=== PATIENT | female | born 1950 | race Caucasian/White ===

== ENCOUNTER 2016-07-28 07:45 | Emergency (ER) | payer OTHER ==
[~2016-07-28] VITALS: Ht 160 cm; Wt 85.0 kg
[~2016-07-28 07:45] MED LIST: CIPR500T4 PO; EFFE150C PO; LORA0.5T PO; LORTA5 PO; ZOCO40TA PO
[2016-07-28 07:48] VITALS: BP 149/82; PULSE 77; RESP 15; TEMP 98.2; O2SAT 100
[2016-07-28] MEDS ORDERED: TETANUS/DIPHTHERIA TOXOID ADULT 0.5 ML VIAL IM ONE (08:00)
--- NOTE | 2016-07-28 08:03 | PD ---
HPI Chief Complaint: Injury Time Seen by Provider: 07:54 Travel History International Travel<30 days: No Contact w/Intl Traveler<30days: No Traveled to known affect area: No History of Present Illness HPI The patient is a 66-year-old female who presents emergency department for left forearm pain. The patient states she tripped and fell at [facility] yesterday. The patient states she was shocked when she fell, but was able to stand up and ambulate. The patient then developed left forearm pain starts at the left wrist and radiates to the elbow. The patient did apply ice and took Aleve last night which did help the pain. However, she does note continuing pain of the left forearm that is worse with palpation, flexion, extension, supination, and pronation. She also notes a superficial abrasion to the left lower lip and extensor surface of the left hand. The patient is right-hand dominant. The patient denied any syncopal symptoms and denies any current headache, neck pain , dizziness, nausea, or vomiting. The patient denies taking any anticoagulants. PFSH Past Medical History Anxiety: Yes Depression: Yes High Cholesterol: Yes Diminished Hearing: No GERD: Yes ?: Not Menopausal: Yes Past Surgical History Section: Yes Cholecystectomy: Yes Social History Alcohol Use: No Tobacco Use: Yes (5 CIGS A DAY) Substance Use: No Allergies-Medications (Allergen,Severity, Reaction): Coded Allergies: No Known Allergies (Verified , 07/28/16) Reported Meds & Prescriptions Reported Meds & Active Scripts Active Reported Effexor (Venlafaxine HCl) 75 Mg Tab 75 Mg PO DAILY Zocor (Simvastatin) 40 Mg Tab 40 Mg PO DAILY Review of Systems Except as stated in HPI: all other systems reviewed are Neg Eyes: No: Blurred Vision HENT: No: Headaches, Neck Pain Cardiovascular: No: Chest Pain or Discomfort, Syncope Gastrointestinal: No: Nausea, Vomiting Musculoskeletal: Positive: Limited ROM, Pain Skin: Positive Other (abrasions) Neurologic: No: Focal Abnormalities, Change in Mentation, Paresthesia, Sensory Disturbance Physical Exam Narrative GENERAL: Awake, alert, very pleasant 66-year-old female who appears her stated age and is in no acute respiratory distress. SKIN: Focused skin assessment warm/dry. Patient has a superficial abrasion to left lower lip and extensor surface of the left hand. HEAD: Atraumatic. Normocephalic. EYES: Pupils equal and round. No scleral icterus. No injection or drainage. ENT: No nasal bleeding or discharge. Mucous membranes pink and moist. Ecchymosis noted on the mucosal surface of the left lower lip, no laceration noted. NECK: Trachea midline. No JVD. No tenderness of the cervical vertebrae. MUSCULOSKELETAL: Patient has edema and swelling located over the left wrist. Limited range of motion with flexion and extension her left wrist as well as supination and pronation. Mild tenderness over the proximal aspect the left forearm. No tenderness of the left clavicle or left humerus. Intrinsic left hand muscles are intact. Positive left radial pulse. NEUROLOGICAL: Awake and alert. No obvious cranial nerve deficits. Motor grossly within normal limits. Normal speech. Sensation is intact to the radial , median, and ulnar distribution of the left hand. PSYCHIATRIC: Appropriate mood and affect; insight and judgment normal. Data Data Last Documented VS Vital Signs Date Time Temp Pulse Resp B/P Pulse Ox O2 Delivery O2 Flow Rate FiO2 07/28/16 07:48 98.2 77 15 149/82 100 Orders Forearm (2vws) (07/28/16 ) Tetanus/Diphtheria Tox Adult (Tetanus/Di (07/28/16 08:00) MDM Medical Decision Making Medical Screen Exam Complete: Yes Emergency Medical Condition: Yes Medical Record Reviewed: Yes Interpretation(s) X-ray of the left forearm reveals unremarkable study. Differential Diagnosis Differential diagnosis includes fracture, dislocation, contusion, hematoma, abrasion, laceration, mechanical fall. Narrative Course X-ray of the left forearm was obtained. The patient declined pain medication. The patient's tetanus shot was updated. X-ray of the left forearm reveals unremarkable study. Diagnosis Primary Impression: Left forearm pain Additional Impressions: Abrasion Fall Qualified Code: W19.XXXA - Fall, initial encounter Additional Instructions: Velcro wrist splint. Elevate, ice, activity as tolerated. Tylenol and/or Motrin as needed for pain. Activity as tolerated. Med/Other Pt SpecificInfo: No Change to Meds Disposition: 01 DISCHARGE HOME Condition: Stable Bipin Leach MD Jul 28, 2016 08:03
[2016-07-28] MEDS ORDERED: ZOCO40TA PO (08:05)
[2016-07-28] MEDS ORDERED: VENL75TA PO (08:05)
--- NOTE | 2016-07-28 08:17 | RADHPO ---
EXAM DATE/TIME: 07/28/2016 08:06 [place] COMPARISON: No previous studies available for comparison. INDICATIONS : Fell last night, left forearm pain, limited ROM MEDICAL HISTORY : None. SURGICAL HISTORY : None. ENCOUNTER: Initial ACUITY: 1 day PAIN SCORE: 9/10 LOCATION: Left forearm FINDINGS: No definite fractures, or dislocations are identified. No definite lytic or sclerotic lesion is seen . CONCLUSION: Unremarkable study. Nathaniel Forrester MD on July 28, 2016 at 8:15 Board Certified Radiologist. This report was verified electronically.
== END 2016-07-28 08:38 | disposition home or self-care (01) ==
LOC: PHED 07:45
DX: M79.632 Pain in left forearm (principal); S00.511A Abrasion of lip, initial encounter; S60.512A Abrasion of left hand, initial encounter; E78.00 Pure hypercholesterolemia, unspecified; Z23 Encounter for immunization; Z72.0 Tobacco use; Z86.59 Personal history of other mental and behavioral disorders; Z87.19 Personal history of other diseases of the digestive system; W01.0XXA Fall on same level from slipping, tripping and stumbling without subsequent striking against object, initial encounter; Y92.512 Supermarket, store or market as the place of occurrence of the external cause
CPT/HCPCS: 73090; 90471; 90714; 99283; L3908

== ENCOUNTER → 2017-05-02 | Outpatient (CLI) | payer OTHER ==
[~2017-05-02] MED LIST changes: -CIPR500T4 PO; -EFFE150C PO; -LORA0.5T PO; -LORTA5 PO; +VENL75TA PO
[2017-05-02 13:35] LABS: AUTOMATED NEUTROPHIL # 4.4 TH/MM3 (1.8-7.7); BASOPHIL # 0.1 TH/MM3 (0-0.2); BASOPHIL % 0.9 % (0.0-2.0); EOSINOPHIL # 0.2 TH/MM3 (0-0.4); EOSINOPHIL % 2.4 % (0.0-4.0); HEMATOCRIT 41.6 % (35.0-46.0); HEMOGLOBIN 13.9 GM/DL (11.6-15.3); LYMPH % 29.4 % (9.0-44.0); LYMPHOCYTE # 2.1 TH/MM3 (1.0-4.8); MEAN CELL VOLUME 81.1 FL (80.0-100.0); MEAN CORPUSCULAR HEMOGLOBIN 27.1 PG (27.0-34.0); MEAN CORPUSCULAR HGB CONC 33.4 % (32.0-36.0); MEAN PLATELET VOLUME 9.2 FL (7.0-11.0); MONOCYTE # 0.4 TH/MM3 (0-0.9); NEUT % 62.3 % (16.0-70.0); PLATELET COUNT 207 TH/MM3 (150-450); RED BLOOD COUNT 5.13 MIL/MM3 (4.00-5.30); RED CELL DISTRIBUTION WIDTH 15.2 % (11.6-17.2); WHITE BLOOD COUNT 7.1 TH/MM3 (4.0-11.0)
[2017-05-02 14:08] LABS: AMORPHOUS SEDIMENT, URINE FEW; BACTERIA, URINE OCC /hpf; BILIRUBIN, URINE NEG (NEG); BLOOD, URINE SMALL (NEG); GLUCOSE,URINE NEG (NEG); KETONE, URINE NEG (NEG); MUCUS URINE MOD /lpf (OCC); NITRITE,URINE NEG (NEG); PH, URINE 5.5 (5.0-8.5); SQUAMOUS EPITHELIAL CELL URINE 5 /hpf (0-5); URINE COLOR YELLOW (YELLW/STRAW); URINE LEUKOCYTE ESTERASE MOD (NEG)
--- NOTE | 2017-05-02 17:55 | EKG ---
Date Performed: 05/02/2017 Time Performed: 13:27:44 PTAGE: 66 years EKG: Sinus rhythm ST junctional depression is nonspecific Borderline ECG No significant change from prior electrocardi ogram. PREVIOUS TRACING : 09/28/2010 10.27 DOCTOR: Jesus Brown Interpretating Date/Time 05/02/2017 17:55:13
== END ==
LOC: CPRE 12:54
PROVIDERS: ATTEND Obstetrics & Gynecology
DX: Z01.810 Encounter for preprocedural cardiovascular examination (principal); Z01.812 Encounter for preprocedural laboratory examination; Z01.818 Encounter for other preprocedural examination; D39.0 Neoplasm of uncertain behavior of uterus; D25.9 Leiomyoma of uterus, unspecified; R94.31 Abnormal electrocardiogram [ECG] [EKG]
CPT/HCPCS: 36415; 81001; 85025; 93005

== ENCOUNTER 2018-05-27 05:21 | Inpatient (IN) ==
[2018-05-27] MEDS ORDERED: Sodium Chlor 0.9% Inj 60 ML, Bupivacaine Liposo PF 1.3% Inj 20 ML, Bupivacaine/Epi PF 0... P-ARTICULR SCH ×3 (06:09)
[2018-05-27] MEDS ORDERED: Chlorhexidine 4% Topical 120 APPLIC/120 ML Bottle TOPICAL SCH (06:15)
[2018-05-27] MEDS ORDERED: Chlorhexidine Gluconate 2% 1 Pack (2 Cloths) TOPICAL ONE (06:17)
[2018-05-27] MEDS ORDERED: Metoprolol Tartrate 25 MG Tablet PO ONE (06:17)
[2018-05-27] MEDS ORDERED: TRANEXAMIC ACID IV.SIG SCH (07:00)
[2018-05-27] MEDS ORDERED: Vancomycin Inj 1,000 MG in Sodium Chlor 0.9% Inj 250 ML IV.SIG SCH (07:00)
[2018-05-27] MEDS ORDERED: ceFAZolin 2 GM Premix Inj 2 GM/50 ML PIGGYBACK IV.SIG SCH (07:00)
[2018-05-27] MEDS ORDERED: Sodium Chlor 0.9% Inj 500 ML IV.SIG SCH (07:00)
[2018-05-27] MEDS ORDERED: SODIUM CHLOR 0.9% IV.SIG SCH (07:00)
[2018-05-27] MEDS ORDERED: Bupivacaine/Epinephrine Inj 0.25% 50 ML Vial ONE (07:03)
[2018-05-27] MEDS ORDERED: Bupivacaine Liposomal PF 1.3% Inj 20 ML Vial ONE (07:04)
[2018-05-27] MEDS ORDERED: Bupivacaine 0.5% Inj 50 ML MDV Vial ONE (07:11)
[2018-05-27] MEDS ORDERED: Dexamethasone PF Inj 10 MG/ML Vial ONE (07:11)
[2018-05-27] MEDS ORDERED: Phenylephrine/NS 1000 MCG/10ML Syringe IV.PUSH ONE (07:21)
[2018-05-27] MEDS ORDERED: Lidocaine PF 1% Inj 5 ML Syringe OTHER ONE (07:21)
[2018-05-27] MEDS ORDERED: Ketorolac Inj 30 MG/ML (IVP) Vial IV.PUSH ONE (07:21)
[2018-05-27] MEDS ORDERED: Post-op Orders (for Pharmacy) OTHER STA (07:45)
[2018-05-27] MEDS ORDERED: Bisacodyl 10 MG Supp RECTAL PRN (07:45)
[2018-05-27] MEDS ORDERED: Morphine Inj 4 MG/ML Vial IV.PUSH PRN (07:45)
[2018-05-27] MEDS ORDERED: Temazepam 15 MG Capsule PO PRN (07:45)
[2018-05-27] MEDS ORDERED: SODIUM CHLOR 0.9% IV.SIG ONE (08:39)
[2018-05-27] MEDS ORDERED: CEFAZOLIN IV.SIG ONE (08:39)
[2018-05-27] MEDS: Multivitamin/Minerals Therapeutic Tablet PO SCH ×2 (09:00→20:21)
[2018-05-27] MEDS: Senna/Docusate Sodium 8.6/50 MG Tablet PO SCH ×2 (09:00→20:21)
--- NOTE | 2018-05-27 10:00 | P.OP ---
- Preoperative Diagnosis (1) Osteoarthritis of right knee - Postoperative Diagnosis (1) Osteoarthritis of right knee Date of procedure: 05/27/18 Procedure: Right total knee arthroplasty Anesthesia: regional, local, spinal Surgeon: Isac Padron MD Quality Liaison: Laura Nice PA-C Operation and Findings: EBL: 50 cc INDICATION: This patient presents with long-standing arthritis of the knee. Attachment record documents conservative measures. The patient now presents for surgical treatment. NOTE: Laura Nice PA-C was present for the entire surgical procedure as my showroom sales assistant. In my medical opinion her skill and care was necessary for proper management of this patient. TOURNIQUET TIME: 75 minutes COMPANY: [employer] FEMUR: Size 5, posterior stabilized TIBIA: Size 5, fixed-bearing PATELLA: 32 mm POLYETHYLENE INSERT: Posterior stabilized, 10 mm PROCEDURE: This patient was brought the operating room and anesthetized in the supine position. The patient was positioned supine on the table. The tourniquet was placed about the thigh, and the leg was scrubbed with alcohol followed by Hibiclens followed by ChloraPrep and draped sterilely. A timeout was done, and antibiotics were given. After exsanguination the tourniquet was inflated to 250 mmHg. An anterior incision was made and a median parapatellar arthrotomy was performed. The patella was released laterally and subluxed allowing freehand cut of the patella which was then sized. A metal cap was placed over the exposed patellar surface for protection. A line pilot hole was placed in the distal femur allowing a 6 valgus cut removing 10 mm from the distal femur. Anterior posterior and chamfer cuts were made. The posterior stabilize osteotomy was made. The attention was directed to the tibia. Retractors were positioned. The external alignment guide was used allowing the lateral tibia to be used as referencing guide and cut utilizing an oscillating saw taking care to avoid any injury to the surrounding soft tissues. This was sized properly. Trial reduction showed that the insert fit nicely. The patient had range of motion extension 0 flexion 120. A medial release was necessary. A posterior medial release was necessary as well. The release medially was done from the tibial attachment of the deep fibers of the MCL along the medial aspect of the proximal tibia. The bony surfaces prepared. On the back table 2 packets of methylmethacrylate were mixed. The components were cemented. Excess cement was removed. The tourniquet let down and hemostasis was controlled. The final plastic insert was inserted. Range of motion was the same as previously noted. The arthrotomy was repaired with interrupted #1 Vicryl suture, subcutaneous tissue 2-0 Vicryl suture and skin with metallic kate A sterile dressing was applied. Sponge counts, needle counts and instrument counts were all correct. The patient tolerated procedure well and was taken to recovery in satisfactory condition. FINDINGS: There was a significant varus deformity. This was corrected. Patient range of motion was satisfactory. There was no complication appreciated.
--- NOTE | 2018-05-27 10:01 | P.DCO ---
- Physical Therapy Physical Therapy: Gait training (Physical therapy 3 times per week for 2 weeks) Knee: Total knee, Protocol: Right, Full weight bearing Canvas Knee Splint: Other (At night for 4 weeks) Right Lower Extremity Weight Bearing: Weight bearing as tolerated - Case Management Consult Case Management Consult-Home Health: Yes - Certification Need for Home Health services: I have seen patient Mena Hughes on 05/27/18. My clinical findings support the need for the requested home health care services because: Need for Home Health Services: High risk of falls Homebound Certification: I certify that my clinical findings support that this patient is homebound because: Homebound Certification: Unsteady gait/balance
--- NOTE | 2018-05-27 11:31 | XR ---
EXAM DATE: 05/27/2018 11:03 AM EST AGE/SEX: 67 years / Female INDICATIONS: Post op right knee surgery. CLINICAL DATA: This is the patient's initial encounter. Patient reports that signs and symptoms have been present for 1 day and indicates a pain score of 0/10. MEDICAL/SURGICAL HISTORY: None. None. COMPARISON: HPO, KNEE COMPLETE RIGHT 4V, 04/02/2018. . FINDINGS: 2 views of the knee status post total knee arthroplasty with intact hardware in normal alignment of t he osseous structures. Skin kate are present. No radiopaque foreign bodies. Some scattered soft ti ssue gas. CONCLUSION: Expected postoperative findings status post total knee arthroplasty. Electronically signed by: Alex Lares MD Board Certified Radiologist 05/27/2018 11:30 AM EST
[2018-05-27] MEDS ORDERED: *morphine SULFATE 4 MG/ML PERIprocedure ONLY ONE (12:48)
[2018-05-27] MEDS: ceFAZolin Inj 1 GM in Sodium Chlor 0.9% Inj 100 ML IV.SIG SCH ×2 (14:22→20:21)
--- NOTE | 2018-05-27 18:26 | P.DS ---
Date of admission: 05/27/18 07:45 Primary care physician: Rei Leiva DO Attending physician on discharge: Isac Padron Anticipated date of discharge: 05/28/18 Brief History from admission: Ms. Hughes has had ongoing right knee pain for almost 10 years. She's had substantial treatment for her knee condition over the last 3 years including treatment with multiple cortisone injections, prescription nonsteroidal medications and activity limitations. Her pain seemed to increase over the holidays 2017. Surgical treatment was recommended in the form of right total knee arthroplasty. Patient agreed now presents for the above. DS: Diagnosis - Discharge Diagnosis (1) Osteoarthritis of right knee Status: Acute DS: Medications - Discharge Medications Prescriptions: aspirin 81 mg PO BID 30 Days #60 tab hydrocodone-acetaminophen 1 tab PO Q4H PRN #42 tab PRN Reason: Acute Pain DS: Summary Hospital Course: Surgical treatment was performed on the day of admission without complication. She recovered well in PACU and was transferred to the orthopedic floor. Pain was controlled with IV and oral medications. She was compliant with physical therapy and all total knee precautions. After 1 day she was found be stable and discharged home with a home physical therapy team. Her dressing was changed before discharge due to being saturated. She was encouraged to pursue a high-fiber diet, to ice the operative site, and to continue physical therapy. She was given prescriptions for [place] and aspirin. - Time Spent with Patient Total time spent providing and/or coordinating discharge services: Greater than 30 minutes - Quality: VTE Deep Vein Thrombosis/Pulmonary Embolism Present on Admission: No Exam Vital signs: Vital Signs 05/27/18 06:25 05/27/18 07:05 05/27/18 10:15 Temperature 98.5 F 97.4 F L Pulse Rate 66 71 79 Respiratory Rate 18 20 Blood Pressure 114/70 103/57 L Pulse Oximetry 96 96 97 05/27/18 10:31 05/27/18 10:48 05/27/18 11:02 Temperature 98.0 F Pulse Rate 66 66 73 Respiratory Rate 20 18 18 Blood Pressure 105/52 L 115/63 130/59 L Pulse Oximetry 99 95 95 05/27/18 11:18 05/27/18 11:39 05/27/18 13:00 Temperature Pulse Rate 73 78 84 Respiratory Rate 18 20 18 Blood Pressure 133/67 123/64 126/75 Pulse Oximetry 95 94 L 94 L 05/27/18 13:57 05/27/18 14:50 05/27/18 16:00 Temperature 97.4 F L 97.6 F Pulse Rate 80 79 76 Respiratory Rate 18 16 18 Blood Pressure 136/74 114/56 L 137/66 Pulse Oximetry 95 95 92 L Intake & Output 05/26/18 05/27/18 05/27/18 18:59 06:59 18:59 Intake Total 1478.6 / 1478.6 Output Total 350 / 350 Balance 1128.6 / 1128.6 Weight 86 kg 86 kg Intake: IV 478.6 / 478.6 Cyklokapron Inj 860 MG In NS 108.6 / 108.6 Inj 100 ML @ 200 mls/hr IV.SIG ONCE [facility]Y Rx#:[id number] Vancomycin Inj 1,000 MG In NS 250 / 250 Inj 250 ML @ 250 mls/hr IV.SIG DUST BOX WORKER CATY Rx#:[id number] Ancef Inj 1 GM In NS Inj 100 ML 120 / 120 @ 100 mls/hr IV.SIG Q6H [facility]Y Rx #:[id number] Oral 300 / 300 Anesthesia Amount 700 / 700 Output: Urine 300 / 300 Estimated Blood Loss 50 / 50 Other: Date of Last Bowel Movement 05/27/18 Weight On Admission 86 kg Results Procedures completed during hospitalization: Right total knee arthroplasty Labs on day of discharge: Labs from last 24 hours 05/27/18 06:25 Blood Type A Positive Blood Type Recheck Required Antibody Screen Negative - Impressions ITS Impressions Knee X-Ray 05/27/18 07:45 CONCLUSION: Expected postoperative findings status post total knee arthroplasty. Discharge Plan - Discharge Disposition Patient Disposition: 01 Discharge Home - Discharge Condition Condition: Good - Discharge Order Discharge Orders: Discharge Order (Routine); Ordered 05/28/18 Ordered By: Isac Padron - Physicians Team Primary Care Provider: Rei Leiva Attending Provider: Isac Padron - Rxs /Orders / Referrals /Forms Prescriptions: New aspirin 81 mg Tablet,Chewable 81 mg PO BID 30 Days Qty: 60 RF: 0 hydrocodone-acetaminophen 7.5-325 mg Tablet 1 tab PO Q4H PRN (Reason: Acute Pain) Qty: 42 RF: 0 Continue simvastatin [Zocor] 40 mg Tablet 40 mg PO QPM venlafaxine [Effexor XR] 150 mg Capsule,Extended Release 24hr 150 mg PO HS Ambulatory Orders / Order Sets / DME: Adjustable Commode 3-in-1 (1 each) (Routine) Location: Determined by Patient Ordered By: Isac Padron Walker With Front Wheels (1 each) (Routine) Location: Determined by Patient Ordered By: Isac Padron Referrals: Rei Leiva, [Primary Care Provider] - See Instructions - Discharge Instructions Patient Printed Instructions: Hydrocodone/Acetaminophen (By mouth), Fall Prevention (DC), Knee Replacement (DC), Deep Vein Thrombosis Prevention (DC) Additional Instructions: WEIGHT BEARING TOLERATED DO NOT CHANGE DRESSING ATTEND FOLLOW UP APPOINTMENT SCHEDULED - Post Discharge Care Plan Care Plan Goals: Discharge Care Plan Goals for RIGHT Total Knee Replacement You have undergone knee replacement surgery. Your doctor replaced your painful joint with an artificial joint to relieve pain and restore movement. Here are some goals to help you heal well. Directions to Meet your Goals: 1. Activity & Exercises: * Take pain medicine as directed by your doctor. * Sit in chairs with arms. The arms make it easier for you to stand up or sit down. * Dont sit for more than 30 to 45 minutes at one time. * Nap if you are tired, but dont stay in bed all day. * Sleep with a pillow under your ankle, not your knee. Be sure to change the position of your leg during the night. * Wear the support stockings you were given in the hospital as directed by your surgeon. 2. Prevent Falls/Injury: The massey to successful recovery is movement with walking and exercising your knee as directed by your doctor. * Arrange your household to keep the items you need handy. Keep everything else out of the way. * Remove items that may cause you to fall, such as throw rugs and electrical cords. * Use nonslip bath mats, grab bars, an elevated toilet seat, and a shower chair in your bathroom * Sit on a shower stool or chair when you shower to keep from falling. * Until your balance, flexibility, and strength improve, use a cane, crutches, a walker, handrails, or someone to help you. * Keep your hands free by using a backpack, mary pack, apron, or pockets to carry things * Walk up and down stairs with support. Try one step at a time. Use the railing if possible. * Dont drive until your doctor says its OK. * Dont drive while you are taking opioid pain medicine. 3. Precautions: * Prevent infection. Any infection will need to be treated immediately. Call your doctor right away if you think you might have an infection. * Tell your dentist that you have an artificial joint and take antibiotics as prescribed before any dental work. * Tell all your healthcare providers about your artificial joint before any medical procedure. * Maintain a healthy weight. Get help to lose any extra pounds. Added body weight puts stress on the knee. * Your medications may include blood-thinning medicine to prevent blood clots or antibiotics to prevent infection-prevent any falls or cuts 4. Incision Care: * Prevent infection by washing your hands often. If an infection occurs, it will need to be treated right away. * Call your doctor right away if you think you may have an infection. Symptoms include a fever or an incision that leaks white, green, or yellow fluid. * Don't soak your incision in water until your doctor says its OK. This means no hot tubs, bathtubs, or swimming pools. * Follow your doctor's instructions for changing the dressing. * Dont rub the incision, or apply creams or lotions to it. * If you notice any redness or drainage around the bandage site, contact your surgeon's office immediately. 5. Follow-Up: Do Not miss your follow-up appointment. Keep up with all your appointments and yearly check ups When to call your doctor: Call your doctor right away if you have: Fever of 100.4F (38C) or higher, or as directed by your doctor Shaking chills Stiffness, or inability to move the knee Increased swelling in your leg Increased redness, tenderness, or swelling in or around the knee incision Drainage from the knee incision Increased knee pain Call 911: Call 911 right away if you have: Chest pain Shortness of breath Any pain or tenderness in your calf
[2018-05-27] MEDS ORDERED: Venlafaxine XR 75 MG Capsule PO SCH (21:00)
[2018-05-28] MEDS: ceFAZolin Inj 1 GM in Sodium Chlor 0.9% Inj 100 ML IV.SIG SCH (01:04)
[2018-05-28 08:27] LABS: Hematocrit 34.2 % (35.0-46.0); Hemoglobin 11.6 gm/dL (11.6-15.3)
[2018-05-28] MEDS: Multivitamin/Minerals Therapeutic Tablet PO SCH (08:27)
[2018-05-28] MEDS: Senna/Docusate Sodium 8.6/50 MG Tablet PO SCH (08:27)
[2018-05-28 12:58] VITALS: BP 107/61; PULSE 81; TEMP 97.6; O2SAT 96
[2018-05-28 14:49] VITALS: RESP 18
--- NOTE | 2018-05-28 22:40 | P.PNOP ---
Subjective Interval history: She is doing well. Her pain is still well controlled from the block. She denies any acute radiating leg pain or numbness. No chest pain or shortness of breath. Prefers discharge home. Physical Exam Vital signs: Vital Signs 05/27/18 23:15 05/28/18 00:44 05/28/18 04:27 Temperature 97.6 F 97.4 F L Pulse Rate 83 86 Respiratory Rate 17 17 17 Blood Pressure 117/57 L 131/69 Pulse Oximetry 94 L 96 05/28/18 04:37 05/28/18 08:00 05/28/18 08:58 Temperature 98.1 F Pulse Rate 84 Respiratory Rate 18 17 18 Blood Pressure 127/66 Pulse Oximetry 95 05/28/18 12:56 05/28/18 12:59 Temperature 97.6 F Pulse Rate 81 Respiratory Rate 16 18 Blood Pressure 107/61 Pulse Oximetry 96 Intake & Output 05/28/18 05/28/18 05/29/18 06:59 18:59 06:59 Intake Total 1620 / 1620 1000 / 1000 Balance 1620 / 1620 1000 / 1000 Weight 86.2 kg Intake: IV 1200 / 1200 1000 / 1000 LR 1000 mL Inj 1,000 ML @ 80 1000 / 1000 1000 / 1000 mls/hr IV.CONT .[id number] [facility]Y Rx# :[id number] Ancef Inj 1 GM In NS Inj 100 ML 200 / 200 @ 100 mls/hr IV.SIG Q6H [facility] Rx #:[id number] Oral 420 / 420 Other: # Voids 3 Date of Last Bowel Movement 05/27/18 05/27/18 # Bowel Movements 0 Narrative: With family member Seen during PT class NAD RLE Knee dressing intact, moderately saturated distal, no erythema +motor at distal, +sens, +nvi Neg homans Results - Labs CBC & Chem 7: 05/28/18 07:31 Laboratory Results - last 24 hr 05/28/18 07:31 Hgb 11.6 Hct 34.2 L - Procedures Right total knee arthroplasty Assessment and Plan - Ortho Post Op Day # 1 - Problem List (1) Osteoarthritis of right knee Code(s): M17.11 - Unilateral primary osteoarthritis, right knee Status: Acute - Assessment and Plan pod#1 s/p R TKA Doing better than expected. R leg pain controlled. Ok to d/c home w home PT after class today. Víctor for pain. ASA 81mg bid. Dressing change before discharge but hold thereafter. Keep sealed when showering. PT - WBAT RLE. TKA protocol. F/U in 2 weeks as scheduled.
== END 2018-05-28 14:58 | disposition home or self-care (01) | DRG 470 ==
LOC: HSDC 05:21 → EDSTATUS 07:30 → HSDI 07:45 → N06 14:42
PROVIDERS: ADMIT Orthopaedic Surgery Orthopaedic Surgery of the Spine; ATTEND Orthopaedic Surgery Orthopaedic Surgery of the Spine
CPT/HCPCS: 73560; 85014; 85018; 86850; 86900; 86901; 94150; 97110; 97116; 97150; 97163; 97167; C1776; C9290; J0690; J1100; J1885; J2250; J2270; J2370; J2704; J3370; J7050; J7120; L1830